=== PATIENT | male | born 1940 | race Two or more races ===

== ENCOUNTER 2019-06-30 07:31 | Inpatient (IN) | payer SELFPAY ==
[~2019-06-30] VITALS: Ht 157.5 cm; Wt 56.7 kg
[2019-06-30 09:21] LABS: CHLORIDE 111 mEq/L (98-107)
[2019-06-30 09:22] LABS: HEMATOCRIT. 34.4 % (42.0-52.0); HEMOGLOBIN. 11.4 g/dL (14.0-18.0); MEAN CORPUSCULAR HEMOGLOBIN 28.8 pg (28.0-32.0); MEAN CORPUSCULAR VOLUME 86.5 fL (80.0-94.0); MEAN PLATELET VOLUME 7.7 fl (7.4-10.4); PLATELET 304 x1000/uL (130-400); RED BLOOD CELL COUNT 3.97 mill/uL (4.7-6.1); RED CELL DISTRIBUTION WIDTH 14.9 % (11.6-14.6)
[2019-06-30 09:25] LABS: ETHANOL BLOOD < 10 mg/dL
[2019-06-30 09:26] LABS: INR 1.1; PROTHROMBIN TIME 10.8 sec (9.6-11.0)
[2019-06-30 09:29] LABS: CREATINE KINASE 42 IU/L (39-308)
[2019-06-30 09:31] LABS: CREATINE KINASE MB FRACTION 1.7 ng/mL (0.5-3.6)
[2019-06-30] MEDS ORDERED: FUROSEMIDE 20MG/2ML VIAL IVP ONE (09:45)
[2019-06-30 09:51] LABS: CLARITY URINE CLEAR (CLEAR); COLOR URINE YELLOW (YELLOW); KETONES URINE NEGATIVE (NEGATIVE); LEUKOCYTE ESTERASE URINE 3+ (NEGATIVE); NITRITE URINE POSITIVE (NEGATIVE); OCCULT BLOOD URINE NEGATIVE (NEGATIVE); PROTEIN URINE NEGATIVE (NEGATIVE); SPECIFIC GRAVITY URINE 1.016 (1.005-1.030)
[2019-06-30 09:54] LABS: PLATELET ESTIMATE NORMAL
[2019-06-30 10:09] LABS: *AMPHETAMINES SCREEN URINE NEGATIVE (NEGATIVE); *BARBITURATES SCREEN URINE NEGATIVE (NEGATIVE); *BENZODIAZEPINES SCREEN URINE NEGATIVE (NEGATIVE); *COCAINE SCREEN URINE NEGATIVE (NEGATIVE); METHADONE URINE SCREEN NEGATIVE (NEGATIVE); OPIATES URINE SCREEN NEGATIVE (NEGATIVE)
[2019-06-30 10:11] LABS: CANNABINOID URINE SCREEN NEGATIVE (NEGATIVE); PHENCYCLIDINE URINE SCREEN NEGATIVE (NEGATIVE)
[2019-06-30] MEDS ORDERED: LEVOFLOXACIN 500MG PREMIX 100 ML IV ONE (10:15)
[2019-06-30] MEDS ORDERED: CEFTRIAXONE 1 G PREMIX 50 ML IV ONE (10:15)
[2019-06-30 12:00] VITALS: BP 122/71
[2019-06-30 12:07] VITALS: BP 122/71
[2019-06-30] MEDS ORDERED: MAGNESIUM/ALUMINUM HYDROXIDE/SIMETHICONE 30ML UDC PO PRN (13:45)
[2019-06-30] MEDS ORDERED: LEVOFLOXACIN 500MG PREMIX 100 ML IV SCH (13:45)
[2019-06-30] MEDS ORDERED: HYDROCODONE/ACETAMINOPHEN 5/325MG TABLET PO PRN (13:45)
[2019-06-30] MEDS ORDERED: CLONIDINE 0.1MG TABLET PO PRN (13:45)
[2019-06-30] MEDS ORDERED: ONDANSETRON HCL 4MG/2ML INJ IV PRN (13:45)
[2019-06-30] MEDS ORDERED: ACETAMINOPHEN 325MG TABLET PO PRN (13:45)
[2019-06-30 15:37] VITALS: BP 127/79
[2019-06-30] MEDS ORDERED: CLON2TAB11 PO (16:48)
[2019-06-30] MEDS ORDERED: CILO100T PO (16:48)
[2019-06-30] MEDS ORDERED: CLOP75TA4 PO (16:48)
[2019-06-30] MEDS ORDERED: ASPI-986 PO (16:48)
[2019-06-30] MEDS ORDERED: AMIO100T4 PO (16:48)
[2019-06-30] MEDS ORDERED: PIRO20CA2 PO (16:48)
[2019-06-30] MEDS ORDERED: ENOXAPARIN 40MG/0.4ML SYR SUBCUT SCH (17:00)
[2019-06-30 17:39] LABS: CARCINO EMBRYONIC ANTIGEN 1.8 ng/ml; PROSTRATE SPECIFIC AG TOTAL 2.86 ng/mL (0.0-4.0)
[2019-06-30 20:00] VITALS: BP 131/64
[2019-07-01] VITALS: BP 126/64
[2019-07-01 04:00] VITALS: BP 135/77
[2019-07-01 06:26] LABS: BASOPHILS % 0.6 % (0.0-2.0); EOSINOPHILS % 3.2 % (0.0-5.0); HEMATOCRIT. 34.1 % (42.0-52.0); HEMOGLOBIN. 11.4 g/dL (14.0-18.0); LYMPHOCYTES % 9.7 % (20.0-50.0); MEAN CORPUSCULAR HEMOGLOBIN 28.7 pg (28.0-32.0); MEAN CORPUSCULAR VOLUME 86.1 fL (80.0-94.0); MEAN PLATELET VOLUME 7.8 fl (7.4-10.4); NEUTROPHILS % 77.5 % (40.0-76.0); PLATELET 318 x1000/uL (130-400); RED BLOOD CELL COUNT 3.96 mill/uL (4.7-6.1); RED CELL DISTRIBUTION WIDTH 15.1 % (11.6-14.6)
[2019-07-01 06:52] LABS: CHLORIDE 110 mEq/L (98-107)
[2019-07-01 08:00] VITALS: BP 118/50
[2019-07-01] MEDS ORDERED: LEVOFLOXACIN 250MG PREMIX 50 ML IV SCH (11:00)
[2019-07-01 12:00] VITALS: BP 122/57
[2019-07-01] MEDS ORDERED: POTASSIUM CHLORIDE 20MEQ TABLET SR PO NR (13:00)
[2019-07-01 13:19] VITALS: BP 122/57
== END 2019-07-01 15:25 | disposition home or self-care (01) | DRG 720 ==
LOC: ER 07:31 → 5WST 10:08 → EDBEDREQ 10:16 → EDBEDREQTM 10:16 → ENRESERV 10:40
PROVIDERS: ADMIT Hospitalist; ATTEND Hospitalist
DX: A41.9 Sepsis, unspecified organism (principal); E44.0 Moderate protein-calorie malnutrition; C34.02 Malignant neoplasm of left main bronchus; G96.0 Cerebrospinal fluid leak; I25.10 Atherosclerotic heart disease of native coronary artery without angina pectoris; I44.0 Atrioventricular block, first degree; I73.9 Peripheral vascular disease, unspecified; N39.0 Urinary tract infection, site not specified; F17.200 Nicotine dependence, unspecified, uncomplicated; R00.1 Bradycardia, unspecified; I10 Essential (primary) hypertension; Z68.22 Body mass index [BMI] 22.0-22.9, adult
CPT/HCPCS: 36415; 71045; 71250; 80305; 80320; 81003; 82105; 82378; 82550; 82553; 83605; 83735; 83880; 84145; 84153; 84484; 87077; 87186; 93005; 93970; 96365; 99285; J0696; J1650; J1940; J1956; G0103; G0480